=== PATIENT | male | born 1955 | race Hispanic/Latino ===

== ENCOUNTER 2017-01-29 08:25 | Outpatient (CLI) | payer OTHER ==
--- NOTE | 2017-01-29 08:46 | XRay Report ---
RIGHT HIP RADIOGRAPHS INDICATION: Hip pain. COMPARISON: None similar at this institution. FINDINGS: An AP pelvic radiograph with frog-leg projection of the right hip demonstrate intact articulation. Imaged bilateral SI and hip joints appear intact. Nonobstructive bowel gas pattern. Mild lower lumbar degenerative changes. CONCLUSION: No acute radiographic abnormality, as described. Thank you for the opportunity to participate in this patient's care.
== END 2017-01-29 08:26 | disposition home or self-care (01) ==
LOC: SPVIMAG 08:25
PROVIDERS: ATTEND Orthopaedic Surgery
DX: M25.551 Pain in right hip (principal); M47.896 Other spondylosis, lumbar region